=== PATIENT | female | born 2000 | race Caucasian/White ===

== ENCOUNTER 2025-05-20 20:18 | Emergency (ER) | payer OTHER, SELFPAY ==
[2025-05-20 20:52] VITALS: BP 114/76; PULSE 87; TEMP 36.9; O2SAT 98; BMI 31.6
--- OUTSIDE RECORDS SUMMARY | 2025-05-20 21:36 | XMS_ITS | Encounter Summary ---
Author Organization [facility] Address [address] [place] [address] Phone Care Team Providers Care Medicaid Specialist Name Role Phone Bro Phillips DO Primary Care Provider [phone] Encounter Details Date Type Department Care Team (Late st Contact Info) Description 05/23/2023 Patient Risk Score ACO Care Management [address] [place] [address] Social History Tobacco Use Types Packs/Day Years Used Date Smoking Tobacco: Every Day Cigarettes 0.3 10 Smokeless Tobacco: Former Comments No Sex and Gender Information Value Date Recorded Sex Assigned at Not on file Legal Sex Female 8:57 PM EST Gender Identity Not on file Sexual Orientation Not on file COVID-19 Exposure Response Date Recorded In the last 10 days, have yo u been in contact with someone who was confirmed or suspected to have Coronavirus/COVID-19? No / Unsure 05/23/2023 2:42 PM EDT documented as of this encounter Functional Status * Question Answer Date of Assessment Author BP 116/74 05/23/2023 3:31 PM EDT Kate Cook MA * Communicable Disease Screening Question Answer Date of Assessment Author Do you have any of the following new or worsening symptoms? None of these 05/23/2023 2:42 PM EDT Johanna Callaway documented as of this encounter Plan of Treatment Not on file documented as of this encounter Visit Diagnoses Not on filedocumented in this encounter Care Teams Medicaid Specialist Relationship Specialty [place] [address] [address] [facility] [address] [place] [address] PCP - General 12/13/16 documented as of this encounter
--- OUTSIDE RECORDS SUMMARY | 2025-05-20 21:36 | XMS_ITS | Encounter Summary ---
Author Organization [facility] Address [address] [place] [address] Care Team Providers Care Body Trimmer Name Role Phone Unavailable Primary Care Provider Unavailabl e Encounter Details Date Type Department Care Team (Late st Contact Info) Description 06/24/2024 Patient Outreach [facility] [address] [place] [phone] [facility] Social History Tobacco Use Types Packs/Day Years Used Date Smoking Tobacco: Every Day Cigarettes Smokeless Tobacco: Never Alcohol Use Standard Drinks/Week Comments Yes 0 (1 standard drink = 0.6 oz pur e alcohol) On ocassion . Social Connections Answer Date Recorded Connectedness 2 01/22/2024 Financial Resource Strain Answer Date R ecorded Financial Resource Strain 2 2023 Stress Answer Date Recorded Stress 2 01/22/2024 Physical Activity Answer Date Recorded Physical Activity 0 01/18/2024 Food Insecurity Answer Date Recorded Food 2 01/22/2024 Transportation Needs Answer Date Record ed Transportation 1 01/22/2024 Housing Stability Answer Date Recorded Housing 2 01/22/2024 Safety and Environment Answer Date Elmo rded Safety 0 01/18/2024 Utilities Answer Date Recorded Utilities 2 01/22/2024 Employment Answer Date Recorded Employment 0 01/18/2024 Comments Unknown Sex and Gender Information Value Date Recorded Sex Assigned at Female 01/22/2024 11:06 AM PDT Legal Sex Female 11:00 AM PDT Gender Identity Female 01/22/2024 11:06 AM PDT Sexual Orientation Bisexual 01/22/2024 11 :06 AM PDT documented as of this encounter Miscellaneous Notes * Patient Communication - Caremessage Default - 06/27/2024 11:04 AM EST Outbound Message: Hi, my name is Emerson. I'm a Patient Navigator at [facility]. As part of the [facility], we are sending an outreach to assist with any follow-up you may have after your recent hospitalization. I can't respond to texts, but please give me a call at [phone] if you have questions about services. Outreach External ID: [id number] Outreach Datetime: 09:15:25 Response Datetime: 09:51:02 [employer] Follow-up for [email or web address] [email or web address] on [id number] documented in this encounter Plan of Treatment Not on file documented as of this encounter Visit Diagnoses Not on filedocumented in this encounter
--- OUTSIDE RECORDS SUMMARY | 2025-05-20 21:36 | XMS_ITS | Encounter Summary ---
Author Organization [facility] Address [address] [place] [address] Care Team Providers Care Regional Branch Manager Name Role Phone Unavailable Primary Care Provider Unavailabl e Encounter Details Date Type Department Care Team (Late st Contact Info) Description 03/20/2024 Patient Outreach [facility] [place] [phone] [facility] Tobacco Use Types Packs/Day [...] * Patient Communication - Caremessage Default - 03/23/2024 12:02 PM EDT Outbound Message: Hi, my name is Emerson. I'm a Patient Navigator at [facility]. As part of the [facility], we are sending an outreach to assist with any follow-up you may have after your recent hospitalization. I can't respond to texts, but please give me a call at [phone] if you have questions about services. Outreach External ID: [id number] Outreach Datetime: 09:15:19 Response Datetime: 10:51:03 Auto [employer] Follow-up for [email or web address] [email or web address] on [id number] documented in this encounter Plan of Treatment Not on file documented as of this encounter Visit Diagnoses Not on filedocumented in this encounter
--- OUTSIDE RECORDS SUMMARY | 2025-05-20 21:36 | XMS_ITS | Encounter Summary ---
Author Organization [facility] Address [address] [place] [address] Phone Care Team Providers Care Product Safety Head Name Role Phone Bro Phillips DO Primary Care Provider [phone] Bro Phillips DO Unavailable [phone] Encounter Details Date Type Department Care Team (Late st Contact Info) Description 04/23/2023 Patient Risk Score AC Care Management [address] [place] [phone] Social History Tobacco Use Types Packs/Day Years Used Date Smoking Tobacco: Never Assessed Comments Unknown Sex and Gender Information Value Date Recorded Sex Assigned at Not on file Legal Sex Female 8:57 PM EST Gender Identity Not on file Sexual Orientation Not on file documented as of this encounter Plan of Treatment Not on file documented as of this encounter Visit Diagnoses Not on filedocumented in this encounter Care Teams Product Safety Head Relationship Specialty [place] [address] [place] [address] PCP - General 12/13/[place] [address] [place] [address] PCP - SPRAYER MACHINE Medicaid PCP 11/19/22 9/ 3 documented as of this encounter
--- OUTSIDE RECORDS SUMMARY | 2025-05-20 21:36 | XMS_ITS | Clinical Summary ---
Author Organization [facility] Address [address] [place] [address] Phone Care Team Providers Care Artificial Breeding Distributor Name Role Phone Bro Phillips DO Primary Care Provider [phone] Allergies Active Allergy Reactions Criticality Noted Date Comments Ampicillin Unknown 05/20/2023 Penicillins Unknown 09/17/2020 Medications drospirenone-ethin yl estradioL (Roxanna, 28,) 3-0.02 mg tabletIndications: contraception Take 1 tablet by mouth once daily. 90 tablet 3 4 Active traZODone (Desyrel) 50 mg tabletIndications: insomnia associated with depression Take 1 tablet (50 mg) by mouth as needed at bedtime for sleep. 30 tablet 06/26/2024 12:24 PM EST 4 Active lurasidone (Latuda) 40 mg tabletIndications: depression associated with bipolar disorder Take 1 tablet (40 mg) by mouth once daily in the evening. Take with meals. 30 tablet 06/26/2024 12:24 PM EST 4 Active cloNIDine (Catapres) 0.1 mg tabletIndications: anxiety Take 0.5 tablets (0.05 mg) by mouth 2 times a day. 30 tablet 06/26/2024 12:24 PM EST 4 Active Active Problems Problem Noted Date Diagnosed Date Mental disorder 06/23/2024 Toxic metabolic encephalopathy 06/19/2024 Bipolar depression (Multi) 03/20/2024 Alcohol use 03/17/2024 Alcohol abuse 03/16/2024 Abnormal vaginal bleeding 05/20/2023 Anxiety 05/20/2023 Bacterial vaginosis 05/20/2023 Cervicalgia 05/20/2023 Chlamydia 05/20/2023 Chronic bilateral low back pain without sciatica 05/20/2023 Depression 05/20/2023 Dysuria 05/20/2023 Encephalopathy 05/20/2023 Environmental and seasonal allergies 05/20/2023 Metabolic encephalopathy 05/20/2023 Migraine without aura and wi thout status migrainosus, not intractable 05/20/2023 Primary oligomenorrhea 05/20/2023 Myalgia 05/20/2023 Nicotine dependence 05/20/2023 Postural strain 05/20/2023 Segmental and somatic dysfunction 05/20/2023 Vaginal discharge 05/20/2023 Vaginitis 05/20/2023 Acne 12/24/2020 Immunizations Immunization Administration Dates Next Due DTaP vaccine, pediatric (INFANRIX) 04/27,05/19/2003,05/17/2002,03/18,02/04/2002 Flu vaccine (IIV4), preserva tive free *Check age/dose* 05/27/2021,06/23/2020,05/23/2019,05/18 Flu vaccine, quadrivalent, n o egg protein, age 6 month or greater (FLUCELVAX) 06/24/2022 HPV 9-valent vaccine (GARDASIL 9) 01/27/2021 HPV, Quadrivalent 10/22/2014,05/05/2014,05/02/20 13 Hepatitis B vaccine, adult * Check Product/Dose* 05/17/2002,02/04/2002,2001 HiB PRP-OMP conjugate vaccin e, pediatric (PEDVAXHIB) 04/07/2004,05/19/2003,05/17/2002,02/04 MMR vaccine, subcutaneous (MMR II) 04/27/2006, Meningococcal ACWY vaccine (MENVEO) 05/23/2019 Meningococcal ACWY, unspecified 05/06/2016 Meningococcal ACWY-D (Menact ra) 4-valent conjugate vaccine 05/06/2016 PPD Test 05/25/2021 Pneumococcal conjugate vacci ne, 13-valent (PREVNAR 13) 04/26/2005,05/19/2003,08/17/2002,03/18 Poliovirus vaccine, subcutan eous (IPOL) 04/27/2006,05/17/2002,03/18/2002,02/04 Tdap vaccine, age 7 year and older (BOOSTRIX, ADACEL) 05/02/2013 Varicella vaccine, subcutane ous (VARIVAX) 04/27/2006,05/19/2003 Family History Medical History Relation Name Comments No Known Problems Father Depression Mother Hyperlipidemia Mother Relation Name Status Comments Father Mother Social History Tobacco Use Types Packs/Day Years Used Date Smoking Tobacco: Every Day Cigarettes 0.3 10 Smokeless Tobacco: Former Tobacco Cessation:Ready to Q uit: No; Counseling Given: Yes Alcohol Use Standard Drinks/Week Comments Never 0 (1 standard drink = 0.6 oz pur e alcohol) B1300 Health Literacy Answer Date Recor ded How often do you need to hav e someone help you when you read instructions, pamphlets, or other written material from your doctor or pharmacy? Never 06/23/2024 [employer] Answer Date Recorded In the past 12 months has [employer], oil, or water [employer] threatened to shut off services in your home? No 06/23/2024 Humiliation, Afraid, Rape, and Kick questionnair e Answer Date Recorded Within the last year, have y ou been afraid of your partner or ex-partner? No 06/23/2024 Within the last year, have y ou been humiliated or emotionally abused in other ways by your partner or ex-partner? No Within the last year, have y ou been kicked, hit, slapped, or otherwise physically hurt by your partner or ex-partner? No 06/23/2024 Within the last year, have y ou been raped or forced to have any kind of sexual activity by your partner or ex-partner? No 06/23/2024 Social Connection and Isolation Panel Answer Date Recorded In a typical week, how many times do you talk on the phone with family, friends, or neighbors? Patient declined 06/23/2024 How often do you get togethe r with friends or relatives? Patient declined 06/23/2024 How often do you attend confucianist or rastafarian serv ices? Never 06/23/2024 Do you belong to any clubs o r organizations such as confucianist groups, unions, fraternal or athletic groups, or school groups? No 06/23/2024 How often do you attend meet ings of the clubs or organizations you belong to? Never 06/23/2024 Are you , , di vorced, , never , or living with a partner? Never 06/23/2024 AUDIT-C Answer Date Recorded Q1: How often do you have a drink containing alcohol? 4 or more times a week 06/23/2024 Q2: How many drinks containi ng alcohol do you have on a typical day when you are drinking? 7 to 9 Q3: How often do you have si x or more drinks on one occasion? Daily or almost daily 06/23/2024 Overall Financial Resource Strain (CARDIA) Answe r Date Recorded How hard is it for you to pa y for the very basics like food, housing, medical care, and heating? Very hard 06/23/2024 PHQ-2 Answer Date Recorded Patient Health Questionnaire-2 Score 4 06/23/2024 [facility] - Occupational Stress Questionnaire Answer Date Recorded Do you feel stress - tense, restless, nervous, or anxious, or unable to sleep at night because your mind is troubled all the time - these days? To some extent 06/23/2024 Exercise Vital Sign Answer Date Recorde d On average, how many days pe r week do you engage in moderate to strenuous exercise (like a brisk walk)? 0 days 06/23/2024 On average, how many minutes do you engage in exercise at this level? 0 min 06/23/2024 Hunger Vital Sign Answer Date Recorded Within the past 12 months, y ou worried that your food would run out before you got the money to buy more. Often true 06/23/20 24 Within the past 12 months, t he food you bought just didn't last and you didn't have money to get more. Often true 06/23/2024 PRAPARE - Transportation Answer Date Re corded In the past 12 months, has l ack of transportation kept you from medical appointments or from getting medications? No 10/2023 In the past 12 months, has l ack of transportation kept you from meetings, work, or from getting things needed for daily living? Yes 06/23/2024 Housing Stability Vital Sign Answer Mike e Recorded In the last 12 months, was t here a time when you were not able to pay the mortgage or rent on time? Yes 06/23/2024 In the past 12 months, how m any times have you moved where you were living? 2 06/23/2024 At any time in the past 12 m [facility], were you homeless or living in a [facility] (including now)? Yes 06/23/2024 Comments No Sex and Gender Information Value Date Recorded Sex Assigned at Not on file Legal Sex Female 8:57 PM EST Gender Identity Not on file Sexual Orientation Not on file Last Filed Vital Signs Vital Sign Reading Time Taken Comments Blood Pressure 111/70 06/26/2024 7:00 AM EST Pulse 73 06/26/2024 7:00 AM EST Temperature 36.5 C (97.7 F) 06/26/2024 7:00 AM EST Respiratory Rate 16 06/26/2024 7:00 AM EST Oxygen Saturation 95% 06/26/2024 7:00 AM EST Inhaled Oxygen Concentration - - Weight 73.2 kg (161 lb 6.4 oz) 06/23/2024 8:00 P M EST Height 165.1 cm (5' 5 ) 06/23/2024 8:00 PM EST Body Mass Index 26.86 06/23/2024 8:00 PM EST Plan of Treatment Health Maintenance Due Date Last Done Comments Pneumococcal Vaccine: Pediatrics and At-Risk Adult Patients (1 of 1 - PPSV23, PCV20, or PCV21) 11/18/2007 04/26/2005, 05/19/2003, 08/17/2002, Additional history exists Meningococcal B Vaccine (1 of 2 - Standard) 2017 HPV/Cotest 2022 DTaP/Tdap/Td Vaccines (7 - Td or Tdap) 05/02/2023 05/02/2013, 04/27/2006, 05/19/2003, Additional history exists Yearly Adult Physical 04/18/2024 04/17/2023 , 01/27/2021, 03/21/2019 COVID-19 Vaccine ( - season) 2025 05/05/2021, 04/06/2021 Influenza Vaccine (#1) 2025 , 05/27/2021, 06/23/2020, Additional history exists Chlamydia and Gonorrhea Screening 05/14/2025 05/14/2024, 03/18/2024, 03/17/2024, Additional history exists Cervical Cancer Screening 04/17/2026 Pap Smear 04/17/2026 04/17/2023 Lipid Panel 06/25/2029 06/25/2024 Zoster Vaccines (1 of 2) 11/18/2051 04/27/2006, 04/22 Hepatitis B Vaccines Completed 05/17/2002, 02/04/2002, 2001 HIB Vaccines Completed 04/07/2004, 04/22, 05/17/2002, Additional history exists IPV Vaccines Completed 04/27/2006, 04/22, 03/18/2002, Additional history exists MMR Vaccines Completed 04/27/2006, 11/18/2002 Meningococcal Vaccine Completed 05/23/2019 , 05/06/2016, 05/06/2016 HPV Vaccines Completed 01/27/2021, 0311/2014, 05/05/2014, Additional history exists HIV Screening Completed 05/14/2024, 02/19, 03/21/2019 Hepatitis C Screening Completed 05/14/2024, 019 Chlamydia Screening Discontinued Hepatitis A Vaccines Aged Out No long er eligible based on patient's age to complete this topic Rotavirus Vaccines Aged Out No longer eligible based on patient's age to complete this topic Procedures Procedure Name Priority Date/Time Associated Diagnosis Comments LIPID PANEL Routine 06/25/2024 6:57 AM EST HEPATITIS C ANTIBODY Routine 05/14/2024 11:16 AM EDT Possible exposure to STD HIV 1/2 ANTIGEN/ANTIBODY SCREEN WIH REFLEX TO CONFIRMATION Routine 05/14/2024 11:16 AM EDT Possible exposure to STD C. TRACHOMATIS / N. GONORRHOEAE, AMPLIFIED, UROGENITAL Routine 05/14/2024 10:51 AM EDT Possible exposure to STD CONVERTED CASE THERAPIST CYTOLOGY Routine 04/17/2023 11:39 AM EDT Encounter for gynecological examination (general) (routine) without abnormal findings from Last 3 Months or Most Recently Relevant to Health Maintenance Results * Lipid Panel (06/25/2024 6:57 AM EST) Cholesterol 153 0 - 199 mg/dL LAB CHEMISTRY METHOD 06/25/2024 7:25 AM [facility] Comment: Age Desirable Borderline High High 0-19 Y 0 - 169 170 - 199 >/= 200 20-24 Y 0 - 189 190 - 224 >/= 225 >24 Y 0 - 199 200 - 239 >/= 240 All ranges are based on fasting samples. Specific therapeutic targets will vary based on patient-specific cardiac risk. Pediatric guidelines reference:Pediatrics 2011, 128(S5).Adult guidelines reference: NCEP ATPIII Guidelines,AMAN 2001, 258:2486-97 Venipuncture immediately after or during the administration of Metamizole may lead to falsely low results. Testing should be performed immediately prior to Metamizole dosing. HDL-Cholesterol 36.9 mg/dL LAB CHEMISTRY METHOD 06/25/2024 7:25 AM [facility] Comment: Age Very Low Low Normal High 0-19 Y < 35 < 40 40-45 ---- 20-24 Y ---- < 40 >45 ---- >24 Y ---- < 40 40-60 >60 Cholesterol/HDL Ratio 4.1 LAB CHEMISTRY METHOD 06/25/2024 7:25 AM [facility] Comment: Ref Values Desirable < 3.4 High Risk > 5.0 LDL Calculated 100 <=119 mg/dL LAB CHEMISTRY METHOD 06/25/2024 7:25 AM [facility] Comment: Near Borderline AGE Desirable Optimal High High Very High 0-19 Y 0 - 109 --- 110-129 >/= 130 ---- 20-24 Y 0 - 119 --- 120-159 >/= 160 ---- >24 Y 0 - 99 100-129 130-159 160-189 >/=190 VLDL 16 0 - 40 mg/dL LAB CHEMISTRY METHOD 06/25/2024 7:25 AM [facility] Triglycerides 82 0 - 114 mg/dL LAB CHEMISTRY METHOD 06/25/2024 7:25 AM [facility] Comment: Age Desirable Borderline High Very High SEX:B mg/dL mg/dL mg/dL mg/dL <=14D 86-277 ---- ---- ---- 15D-365D 55-277 ---- ---- ---- 1Y-9Y 0-74 75-99 >=100 ---- 10Y-19Y 0-89 90-129 >=130 ---- 20Y-24Y 0-114 115-149 >=150 ---- >= 25Y 0-149 150-199 200-499 >=500 Venipuncture immediately after or during the administration of Metamizole may lead to falsely low results. Testing should be performed immediately prior to Metamizole dosing. Non HDL Cholesterol 116 0 - 149 mg/dL LAB CHEMISTRY METHOD 06/25/2024 7:25 AM [facility] Comment: Age Desirable Borderline High High Very High 0-19 Y 0 - 119 120 - 144 >/= 145 >/= 160 20-24 Y 0 - 149 150 - 189 >/= 190 ---- >24 Y 30 mg/dL above LDL Cholesterol goal Blood Venous blood specimen / Unknown Venipuncture / Unknown 06/25/2024 6:57 AM EST 06/25/2024 6:59 AM EST us Re Jalloh MD LAB BLOOD ORDERABLES Final Res ult [facility] [address] [place] [address] * Hepatitis C Antibody (05/14/2024 11:16 AM EDT) Pathologist [facility] Hepatitis C Anitbody Nonreactive Nonreactive LAB IMMUNOASSAY METHOD 05/15/2024 5:53 AM EDT [facility] Comment:Results from patient s taking biotin supplements or receiving high-dose biotin therapy should be interpreted with caution due to possible interference with this test. Providers may contact their local laboratory for further information. Blood Venous blood specimen / Unknown Venipuncture / Unknown 05/14/2024 11:16 AM EDT 05/14/2024 11:16 AM EDT [facility] BLOOD [facility]AB[facility] F inal Result Performing Organization Address [facility] de Phone Number [facility] [address] [place] [address] * HIV 1/2 Antigen/Antibody Screen with Reflex to Confirmation (05/14/2024 11:16 AM EDT) HIV 1/2 Antigen/Antibo dy Screen with Reflex to Confirmation Nonreactive Nonreactive LAB IMMUNOASSAY METHOD 05/15/2024 6:38 AM EDT [facility] Blood Venous blood specimen / Unknown Venipuncture / Unknown 05/14/2024 11:16 AM EDT 05/14/2024 11:16 AM EDT Narrative [facility] - 05/15/2024 6:38 AM EDT HIV Ag/Ab screen is performed using the Siemens [employer] HIV Ag/Ab Combo assay which detects the presence of HIV p24 antigen as well as antibodies to HIV-1 (Group M and O) and HIV-2. No laboratory evidence of HIV infection. If acute HIV infection is suspected, consider testing for HIV RNA by PCR (viral load). Layne [facility] BLOOD ORDERABLES F inal Result Performing Organization Address [facility] Co de Phone Number [facility] [address] [place] [address] * C. Trachomatis / N. Gonorrhoeae, Amplified Detection (05/14/2024 10:51 AM EDT) Neisseria gonorrhea,Ampl ified Negative Negative POLYMERASE CHAIN REACTION 05/15/2024 1:14 PM EDT [facility] Chlamydia trachomatis, Amplified Negative Negative POLYMERASE CHAIN REACTION 05/15/2024 1:14 PM EDT [facility] Urine Urine specimen / Unknown Non-blood Collection / Unknown 05/14/2024 10:51 AM EDT 05/14/2024 10:51 AM EDT Narrative [facility] - 05/15/2024 1:14 PM EDT The APTIMA Combo 2 assay is FDA-approved NAAT using target capture for the in vitro qualitative detection and differentiation of ribosomal RNA (rRNA) for Chlamydia trachomatis and Neisseria gonorrhoeae testing on clinician-collected endocervical, PreservCyt solution liquid Pap specimens, vaginal, throat, rectal, and male urethral swab specimens; patient-collected vaginal swab specimens, and female and male urine specimens from symptomatic and asymptomatic individuals. Samples from all other sites are not validated for this method. Layne MIGUEL LAB MOLECULAR DIAGNOST ICS ORDERABLES Final Result [facility] [address] [place] [address] * CONVERTED CASE THERAPIST CYTOLOGY (04/17/2023 11:39 AM EDT) Pathologist [facility] Pathology Report Date of Procedure: 04/17/2023 Pathologist: FRANCOIS ZHU MD Date Reported: 04/27/2023 Date Received: 04/17/2023 Submitting Physician: LUCIUS GEE FINAL CYTOLOGICAL INTERPRETATION Squamous and/or Glandular Abnormality A. THINPREP PAP CERVICAL: Specimen adequacy: SATISFACTORY FOR EVALUATION. Quality Indicator: Endocervical/transf ormation zone component is present. General Categorization: EPITHELIAL CELL ABNORMALITY - SQUAMOUS CELL. See Interpretation. Descriptive Interpretation: LOW GRADE SQUAMOUS INTRAEPITHELIAL LESION (LSIL) - CERVIX. Ancillary Testing: Specimen does not meet the requisition-stated criteria for HPV testing. See Pap test interpretation above. This specimen has been analyzed by the MinoMonstersPrep Imaging System ([employer] an automated imaging and review system, which assists the laboratory in evaluating cells on ThinPrep Pap tests. Following automated imaging, selected lundy from every slide were reviewed by a splitting machine operator and/or pathologist. Electronically Signed Out By FRANCOIS ZHU MD/LUCIA/JEANE By the signature on this report, the individual or group listed as making the Final Interpretation/Diag nosis certifies that they have reviewed this case. Diagnostic interpretation performed at [facility] [id number] [place], [place] [id number] Educational Note: Cervical cytology is a screening procedure primarily for squamous cancers and precursors and has associated false-negative and false-positive results as evidenced by published data. Your patient's test should be interpreted in this context, together with patient's history and clinical findings. Regular sampling and follow-up of unexplained clinical signs and symptoms are recommended to minimize false negative results. Clinical History Date of Last Menstrual Period: 03/17/2023 Other Clinical Conditions: HPV Reflex for ASC-US only - Exclude HPV Genotype GC / CT Testing Ordered Trichomonas Vaginalis Testing Ordered Additional Testing: GC + Chlamydia + Trichomononas Clinical Diagnosis History: Well woman exam - (Z01.419) Source of Specimen A: THINPREP PAP CERVICAL [facility] Department of Pathology [address] [place], [place] [id number] [facility] CONVERTED FINAL DIAGNOSIS A. THINPREP PAP CERVICAL: Specimen adequacy: SATISFACTORY FOR EVALUATION. Quality Indicator: Endocervical/transf ormation zone component is present. General Categorization: EPITHELIAL CELL ABNORMALITY - SQUAMOUS CELL. See Interpretation. Descriptive Interpretation: LOW GRADE SQUAMOUS INTRAEPITHELIAL LESION (LSIL) - CERVIX. Ancillary Testing: Specimen does not meet the requisition-stated criteria for HPV testing. See Pap test interpretation above. [facility] CONVERTED CLINICAL DIAGNOSIS-HI STORY Additional Testing: GC + Chlamydia + Trichomononas Clinical Diagnosis History: Well woman exam - (Z01.419) [facility] CONVERTED DIAGNOSIS COMMENT This specimen has been analyzed by the MinoMonstersPrep Imaging System ([employer] an automated imaging and review system, which assists the laboratory in evaluating cells on ThinPrep Pap tests. Following automated imaging, selected lundy from every slide were reviewed by a splitting machine operator and/or pathologist. [facility] CONVERTED FINAL REPORT PDF LINK TO COPY AND PASTE \copathshare\copat h\PDF \[id number] [facility] TPP CERVICAL - Exclude Genotype 04/17/2023 11:39 AM EDT 04/17/2023 11:08 AM EDT Lucius Gee PIPE SMOKER MACHINE OPERATOR-CNM LAB CYTOLOGY ORDERABLES Final Result [facility] [address] [place] [phone] from Last 3 Months or Most Recently Relevant to Health Maintenance Insurance [employer] Member Subscriber Plan / Payer (Ef fective 2021-Present) Name:Suki Muller Relation to Subscriber:Self Name:Suki Muller Payer ID:[id number] (NAIC) Group ID:[id number] Type:Not on file Address: [address] [employer] Member Subscriber Plan / Payer (Ef fective 2021-Present) Name:Suki Muller Relation to Subscriber:Self Name:Suki Muller Payer ID:[id number] (NAIC) Group ID:[id number] Type:Not on file Address: [address] [place] [id number] [employer] Advance Directives For more information, please contact: [phone] (Available ) * Full Code (Latest Code Status on File) Date Activated Date Inactivated Comments 06/23/2024 8:08 PM Question Answer Comments Plan of Care: Code Status Discussion Completed Decision Maker: Patient * Full Code Date Activated Date Inactivated Comments 06/19/2024 10:32 PM 06/23/2024 8:08 PM Question Answer Comments Plan of Care: Code Status Discussion Completed Decision Maker: Patient * Full Code Date Activated Date Inactivated Comments 03/16/2024 2:55 PM 06/19/2024 10:32 PM Question Answer Comments Plan of Care: Code Status Discussion Completed Decision Maker: Patient Care Teams Artificial Breeding Distributor Relationship Specialty [place] [address] [address] [facility] [address] [place] [address] PCP - General 12/13/16
--- OUTSIDE RECORDS SUMMARY | 2025-05-20 21:36 | XMS_ITS | Encounter Summary ---
Author Organization [facility] Address [address] [place] [address] Phone Care Team Providers Care Automatic Splicing Machine Operator Name Role Phone Bro Phillips DO Primary Care Provider [phone] Encounter Details Date Type Department Care Team (Late st Contact Info) Description 05/23/2023 Scanned Document [facility] [address] [place] [phone] Sandra Webb, IMMIGRATION MANAGER-CNM [address] Department of [employer] [place], [place] [phone] Social History Tobacco Use Types Packs/Day Years [...] on filedocumented in this encounter Care Teams Automatic Splicing Machine Operator Relationship Specialty [place] [address] [address] [facility] [address] [place] [address] PCP - General 12/13/16 documented as of this encounter
--- OUTSIDE RECORDS SUMMARY | 2025-05-20 21:36 | XMS_ITS | Encounter Summary ---
Author Organization [facility] Address [address] [place] [address] Phone Care Team Providers Care Ragman Name Role Phone Bro Phillips DO Primary Care Provider [phone] Bro Phillips DO Unavailable [phone] Bro Phillips DO Unavailable [phone] Encounter Details Date Type Department Care Team (Late st Contact Info) Description 2001 Scanned Document [facility] [address] [place] [id number] Scanning, Generic Provider Social History Tobacco Use Types Packs/Day Years [...] on filedocumented in this encounter Care Teams Ragman Relationship Specialty [place] [address] [place] [address] PCP - General 12/13/[place] [address] [place] [address] PCP - [place]ano CRANEO PCP 08/21/2101/18 [place] [address] [address] [place], [place] [id number] PCP - DIETICIAN Medicaid PCP 11/19/22 3 documented as of this encounter
--- OUTSIDE RECORDS SUMMARY | 2025-05-20 21:36 | XMS_ITS | Encounter Summary ---
Author Organization [facility] Address [address] [place] [address] Phone Care Team Providers Care Banquet Captain Name Role Phone Bro Phillips DO Primary Care Provider [phone] Bro Phillips DO Unavailable [phone] Encounter Details Date Type Department Care Team (Late st Contact Info) Description 02/20/2023 Patient Risk Score [facility] [address] [place] [phone] Social History Tobacco Use Types Packs/Day Years [...] on filedocumented in this encounter Care Teams Banquet Captain Relationship Specialty [place] [address] [place] [address] PCP - General 12/13/16 [place] [address] [place] [address] PCP - COATING AND BAKING OPERATOR Medicaid PCP 11/19/22 9/ 3 documented as of this encounter
--- OUTSIDE RECORDS SUMMARY | 2025-05-20 21:36 | XMS_ITS | Clinical Summary ---
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 Major depressive disorder 01/22/2024 Social anxiety disorder 01/22/2024 Family History Medical History Relation Name Comments Bipolar disorder Father Suicide Maternal Uncle Anxiety disorder Mother Depression Mother Post traumatic stress disorder Mother Relation Name Status Comments Father Alive Maternal Uncle Mother Alive Social History Tobacco Use Types Packs/Day Years Used Date Smoking Tobacco: Every Day Cigarettes Smokeless Tobacco: Never Tobacco Cessation:Ready to Q uit: Not Asked; Counseling Given: Not Answered Alcohol Use Standard Drinks/Week Comments Yes 0 [...] Orientation Bisexual 01/22/2024 11 :06 AM PDT Plan of Treatment Health Maintenance Due Date Last Done Comments Anxiety Screening 2001 Depression Monitoring 2001 HPV Screening 2001 LTBI Screening (#6) 2001 06/29/2021, 06/10/2021, 06/01/2021, Additional history exists Pap + HPV 2001 Tobacco Cessation Counseling (#1) 2001 Tobacco Screening 2001 Imm-Pneumococcal (1 of 1 - PPSV23, PCV20, or PCV21) 11/18/2007 04/26/2005, 05/19/2003, 08/17/2002, Additional history exists Chlamydia Screening 2014 Relationship Safety Screening/Counseling 2016 Hypertension Screening (#1) 11/18/2019 Imm-Hepatitis A (1 of 2 - Ri sk 2-dose series) 2020 Cervical Cancer Screening 2022 Pap Smear 2022 Imm-DTaP/Tdap/Td (7 - Td or Tdap) 05/02/2023 05/02/2013, 04/27/2006, 05/19/2003, Additional history exists Gonorrhea Screening 05/23/2024 05/23/2023 Alcohol and Drug Screen 08/21/2024 01/22/2024 [id number] ( season) 04/21/20252 021, 04/06/2021 Imm-Influenza (#1) 2025 06/24/2022, 1 , 06/23/2020, Additional history exists Imm-Hepatitis B Completed 05/17/2002, 01/19, 2001 Imm-Varicella Completed 04/27/2006, 05/19/2003 HIV Screening Completed 03/21/2019, 03/21/2019 Hepatitis C Screening Completed 03/21/2019 Imm-HPV Completed 01/27/2021, 03/0 11/2014, 05/05/2014, Additional history exists Cervical Ablation/Cold-Knife Conization Discontinued Cervical Cryotherapy Discontinued Colposcopy Discontinued Endometrial Biopsy Discontinued Excision/Leep Discontinued HPV Genotyping Discontinued Vaginal Pap Discontinued Vulvoscopy Discontinued Insurance [employer] MEDICAID [id number] Member Subscriber Plan / Payer ( fective 2023-Present) Name:Suki Muller Relation to Subscriber:Self Name:Suki Muller Payer ID:[id number] Group ID:Not on file Type:Medicaid Address: [address] [place] [address]
--- OUTSIDE RECORDS SUMMARY | 2025-05-20 21:36 | XMS_ITS | Encounter Summary ---
Author Organization [facility] Address [address] [place] [address] Phone Care Team Providers Care Office Support Specialist Name Role Phone Bro Phillips DO Primary Care Provider [phone] Bro Phillips DO Unavailable [phone] Encounter Details Date Type Department Care Team (Late st Contact Info) Description 03/23/2023 Patient Risk Score [facility] [address] [place] [id number] Social History Tobacco Use Types Packs/Day Years [...] on filedocumented in this encounter Care Teams Office Support Specialist Relationship Specialty [place] [address] [place] [address] PCP - General 12/13/[place] [address] [place] [address] PCP - MOTOR EXPRESS CLERK Medicaid PCP 11/19/22 9/ 3 documented as of this encounter
--- OUTSIDE RECORDS SUMMARY | 2025-05-20 21:36 | XMS_ITS | Encounter Summary ---
Author Organization [facility] Address [address] [place] [address] Phone Care Team Providers Care Real Estate Branch Manager Name Role Phone Bro Phillips DO Primary Care Provider [phone] Bro Phillips DO Unavailable [phone] Bro Phillips DO Unavailable [phone] Encounter Details Date Type Department Care Team (Late st Contact Info) Description 05/27/[address] [facility] [address] [place] [address] Conversion, Onbase Social History Tobacco Use Types Packs/Day Years Used Date Smoking Tobacco: Never Assessed Comments Unknown Sex and Gender Information Value Date Recorded Sex Assigned at Not on file Legal Sex Female 8:57 PM EST Gender Identity Not on file Sexual Orientation Not on file documented as of this encounter Plan of Treatment Scheduled Orders Name Type Priority Associated Diagnoses Orde r Schedule OUTSIDE LAB SCAN Lab Ordered: 05/27/2020 documented as of this encounter Visit Diagnoses Not on filedocumented in this encounter Care Teams Real Estate Branch Manager Relationship Specialty [place] [address] [place] [address] PCP - General 12/13/16 [place] [address] [place] [address] PCP - [place] PCP 08/21/2101/18 [place] [address] [place], [place] [id number] PCP - COMPUTER ANALYST SUPERVISOR Medicaid PCP 11/19/22 3 documented as of this encounter
--- NOTE | 2025-05-20 22:00 | ED.FEMALEGU1 ---
HPI - Female Genitourinary General Chief complaint: Abdominal Pain Stated complaint: HAD SURGICAL MISCARRIAGE 1 WK AGO/ EXTREME PAIN Time Seen by Provider: 05/20/25 21:55 Mode of arrival: walk-in Limitations: no limitations History of Present Illness HPI Narrative: [id number]. states she was 7 weeks and went to a clinic in [place] and they performed an one week ago. She is not sure of what the procedure was. Did have some cramping afterwards. Now complains of increased cramping and bleeding the past 3 days. No fever or urinary complaint. no associated Related Data Allergies Allergy/AdvReac Type Severity Reaction Status Date / Time Penicillins AdvReac Mild Rash Verified 05/20/25 22:18 Review of Systems ROS Status of ROS 10 or more systems reviewed and unremarkable except as noted in history and below PFSH PFSH Social History Little interest or pleasure in doing things: not at all Feeling down, depressed, or hopeless: not at all Exam Constitutional Vital Signs, click to edit/add: Last Vital Signs Temp 98.4 F 05/20/25 20:52 Pulse 87 05/20/25 20:52 Resp 22 H 05/20/25 20:52 BP 114/76 05/20/25 20:52 Pulse Ox 98 05/20/25 20:52 O2 Del Method Room Air 05/20/25 20:52 Common normals: no apparent distress, average body habitus, oriented x3, no limitations, healthy appearing, alert and well nourished [facility] Common normals: normocephalic and head/scalp atraumatic Eye Common normals: PERRL, EOMs intact bilaterally and conjunctivae normal Respiratory Common normals: normal respiratory effort, no retractions, no use of accessory muscles and clear to auscultation bilaterally Cardio Common normals: regular rate, regular rhythm and S1 normal heart sound GI Other: mild suprapubic tenderness. No guarding Common normals: external appearance normal Other: os with small amount of blood. also small amount in the vault easily cleared with 2 large cotton swabs. Extremity Common normals: normal to inspection and full ROM Neuro Common normals: oriented x3, CN's II-XII intact bilaterally, moves all extremities, no focal motor deficits and no sensory deficits noted Psych Appearance: grossly normal Course Vital Signs Vital signs: Vital Signs Temperature 98.4 F 05/20/25 20:52 Pulse Rate 87 05/20/25 20:52 Respiratory Rate 22 H 05/20/25 20:52 Blood Pressure 114/76 05/20/25 20:52 Pulse Oximetry 98 05/20/25 20:52 Oxygen Delivery Method Room Air 05/20/25 20:52 Temperature 98.4 F 05/20/25 20:52 Pulse Rate 87 05/20/25 20:52 Respiratory Rate 22 H 05/20/25 20:52 Blood Pressure 114/76 05/20/25 20:52 Pulse Oximetry 98 05/20/25 20:52 Oxygen Delivery Method Room Air 05/20/25 20:52 MDM - Female Genitourinary MDM Narrative Medical decision making narrative: patient has one week ago at a clinic in [place]. Presents complaining of abdominal cramping and increased vaginal bleeding. Exam with mild suprapubic tenderness. exam with small amount of blood in the vaginal vault but otherwise normal speculum exam. CT unremarkable except for mod. colonic stool burden. labs WNL. lipase and quantitative HCG still pending lipase returned WNL. HCG elevated as suspected and will need follow up Lab Data Labs: Lab Results 05/20/25 Range/Units 22:10 WBC 14.8 H (4.0-11.0) 10^3/uL RBC 4.10 L (4.20-5.40) 10^6/uL Hgb 12.4 (12.0-16.0) g/dL Hct 36.0 (36.0-48.0) % MCV 87.8 (81.0-99.0) fL MCH 30.2 (26.7-34.0) pg MCHC 34.4 (29.9-35.2) g/dL RDW 12.8 (11.0-15.0) % Plt Count 392 (150-450) 10^3/uL MPV 9.3 L (9.5-13.5) fL Neut % (Auto) 76.0 H (43.0-75.0) % Lymph % (Auto) 13.5 L (20.5-60.0) % [place] % (Auto) 8.2 (1.7-12.0) % Eos % (Auto) 1.4 (0.9-7.0) % Baso % (Auto) 0.5 (0.2-2.0) % Neut # (Auto) 11.3 H (1.4-6.5) 10^3/uL Lymph # (Auto) 2.0 (1.2-3.8) 10^3/uL [place] # (Auto) 1.2 H (0.3-0.8) 10^3/uL Eos # (Auto) 0.2 (0.0-0.7) 10^3/uL Baso # (Auto) 0.1 (0.0-0.1) 10^3/uL Abs Immat Gran (auto) 0.06 H (0.00-0.03) 10^3/uL Imm/Tot Granulo (auto) 0.4 (0.0-0.5) % Sodium 137 (136-145) mmol/L Potassium 3.4 L (3.5-5.1) mmol/L Chloride 103 (98-107) mmol/L Carbon Dioxide 22.9 (21.0-32.0) mmol/L Anion Gap 14.5 BUN 8.0 (7.0-18.0) mg/dL Creatinine 0.66 (0.55-1.02) mg/dL Est GFR ( Amer) >60 (>=60 mL/min/1.73m^2) Est GFR (Non-Af Amer) >60 (>=60 mL/min/1.73m^2) BUN/Creatinine Ratio 12.1 Glucose 107 H (74-106) mg/dL Lactate 0.9 (0.4-2.0) mmol/L Calcium 9.3 (8.5-10.1) mg/dL Total Bilirubin 0.3 (0.2-1.0) mg/dL AST 15 (15-37) U/L ALT 25 (14-59) U/L Alkaline Phosphatase 77 (46-116) U/L Total Protein 8.0 (6.4-8.2) g/dL Albumin 3.6 (3.4-5.0) g/dL Globulin 4.4 g/dL Albumin/Globulin Ratio 0.8 Lipase 30.0 (16.0-77.0) U/L HCG, Quant 7738 mIU/mL Discharge Plan Discharge Chief Complaint: Abdominal Pain Clinical Impression: Pelvic pain, Vaginal bleeding, Constipation Patient Disposition: Home, Self-Care Print Language: Pashto Instructions: Constipation (ED), Pelvic Pain in Women (ED) Additional Instructions: follow up with your doctor in the next 2-3 days for recheck Referrals: Physician,Non-Staff, MD [Primary Care Provider] - 1 week
--- NOTE | 2025-05-20 22:03 | CT_ITS ---
[facility] [id number] Patient Name: FABIO FELIZ MRN: [id number] date: 2000 Sex: F Assigned Patient Location: ED.MAIN Current Patient Location: ED.MAIN Accession/Order Number: [id number] Exam Date: 05/20/2025 22:43 Report Date: 05/20/2025 23:18 At the request of: TONY WOLF MD Procedure: CT abdomen pelvis w con CT Abdomen and Pelvis withcontrast TECHNIQUE: Axial imaging with 2-D reconstruction. The CT exam was performed using one or more the following dose reduction techniques: Automated exposure control, adjustment of the MA and/or Kv according to patient size, or use of the iterative reconstruction technique. COMPARISON: None History: Status post . Abdominal pain. LIMITATIONS: None LOWER THORAX Unremarkable LIVER: Unremarkable GALLBLADDER: No gallbladder abnormality identified. BILE DUCTS: No dilatation SPLEEN: Unremarkable PANCREAS: Unremarkable ADRENAL GLANDS: Unremarkable KIDNEYS:Unremarkable AORTA: No abdominal aortic aneurysm identified. RETROPERITONEUM: No significant retroperitoneal abnormalities identified. MESENTERY:Unremarkable STOMACH:Unremarkable SMALL BOWEL: The small bowel loops are nondistended. APPENDIX: The appendix is normal. COLON: Moderate burden of stool throughout the colon URINARY BLADDER: Urinary bladder is unremarkable. REPRODUCTIVE SYSTEM: Reproductive structures are unremarkable. PNEUMOPERITONEUM: None PERITONEAL FLUID:None BONY STRUCTURES: Unremarkable ABDOMINAL WALL: Unremarkable CT/CT abdomen pelvis w con IMPRESSION: No acute findings. No hematoma. No hemoperitoneum. Constipation. Impression dictated by: Master Durham M.D. 05/20/2025 11:18 PM Dictation Location: [employer] Electronically authenticated by: [id number] Y Date: 05/20/2025 23:18
[2025-05-20] MEDS: FENTANYL CITRATE/PF 100 MCG/2 ML VIAL 50 MCG IV (22:26)
[2025-05-20] MEDS: 0.9 % SODIUM CHLORIDE 1,000 ML 999 ML IV (22:26)
[2025-05-20 22:58] LABS: Hematocrit 36.0 % (36.0-48.0); Hemoglobin 12.4 g/dL (12.0-16.0); Immature Granulocytes Abs Auto 0.06 10^3/uL (0.00-0.03); Immature Granulocytes Pct Auto 0.4 % (0.0-0.5); Lymphocytes Absolute Auto 2.0 10^3/uL (1.2-3.8); Mean Corpuscular HGB Conc 34.4 g/dL (29.9-35.2); Mean Corpuscular Hemoglobin 30.2 pg (26.7-34.0); Mean Corpuscular Volume 87.8 fL (81.0-99.0); Platelet Count 392 10^3/uL (150-450); Red Blood Count 4.10 10^6/uL (4.20-5.40); White Blood Count 14.8 10^3/uL (4.0-11.0)
[2025-05-20 23:17] LABS: Lactate/Lactic Acid 0.9 mmol/L (0.4-2.0)
[2025-05-20 23:23] LABS: Alanine Aminotransferase 25 U/L (14-59); Albumin Globulin Ratio 0.8; Albumin Level 3.6 g/dL (3.4-5.0); Alkaline Phosphatase 77 U/L (46-116); Anion Gap 14.5; Aspartate Amino Transferase 15 U/L (15-37); Blood Urea Nitrogen 8.0 mg/dL (7.0-18.0); Calcium 9.3 mg/dL (8.5-10.1); Carbon Dioxide 22.9 mmol/L (21.0-32.0); Chloride 103 mmol/L (98-107); Estimated GFR (African America >60 (>=60 mL/min/1.73m^2); Estimated GFR (Non-African Ame >60 (>=60 mL/min/1.73m^2); Globulin 4.4 g/dL; Glucose 107 mg/dL (74-106); Potassium 3.4 mmol/L (3.5-5.1); Sodium 137 mmol/L (136-145); Total Protein 8.0 g/dL (6.4-8.2)
[2025-05-20 23:44] LABS: Lipase 30.0 U/L (16.0-77.0)
[2025-05-21] MEDS: MAGNESIUM CITRATE 296 ML SOLUTION PO
== END 2025-05-21 00:16 | disposition home or self-care (01) ==
PROVIDERS: Emergency Provider Internal Medicine
DX: R10.9 Unspecified abdominal pain (principal); N93.9 Abnormal uterine and vaginal bleeding, unspecified; K59.00 Constipation, unspecified; Z98.890 Other specified postprocedural states
CPT/HCPCS: 36415; 74177; 80053; 83605; 83690; 84702; 85025; 96374; 99284; J3010; Q9967